=== PATIENT | female | born 1995 | race Caucasian/White ===

== ENCOUNTER 2021-04-07 10:22 | Emergency (ER) | payer MEDICAID ==
[2021-04-07] MEDS ORDERED: Sodium Chloride 0.9% 10 ML Syringe FLUSH PRN (11:15)
--- NOTE | 2021-04-07 11:51 | CR ---
Chest: Portable view of the chest was obtained. Comparison: No prior chest imaging is available. Slightly lobulated hemidiaphragm is seen most likely chronic. Lungs otherwise are clear. Heart size and mediastinum are normal. Slight scoliosis is noted within the spine. Impression: 1. Slightly lobulated hemidiaphragm which is most likely chronic. 2. Nothing acute is otherwise seen on portable chest x-ray. Diagnostic code #2
--- NOTE | 2021-04-07 12:27 | EDM.PDOC ---
ED HPI GENERAL MEDICAL PROBLEM - General Chief Complaint: Respiratory Problem Stated Complaint: COVID + CHEST PAIN\SOB Time Seen by Provider: 04/07/21 11:03 Source of Information: Reports: Patient History Limitations: Reports: No Limitations - History of Present Illness INITIAL COMMENTS - FREE TEXT/NARRATIVE: 26-year-old female presents the emergency department today with complaints of increased shortness of breath and chest pain that started yesterday. Patient states that she was diagnosed with Covid 6 days ago however did have symptoms that started 3 days prior to the diagnosis of Covid. She states that she initially had headache and body aches which progressed to nausea, vomiting, diarrhea, cough and shortness of breath. She states that she became more short of breath yesterday and developed midsternal chest pain associated with coughing. She also complains of nausea and vomiting and states that she has vomited a couple of times daily after eating. She has been able to take sips of water without vomiting. She does admit to having a history of asthma however states she does not take any maintenance medications for the asthma and has not had an asthma attack in over 6 years. She does admit to smoking half pack cigarettes per day for the past 8 years. And she also does have a history of ulcerative colitis. Middle Chest Pain Score (Numeric/FACES): 7 - Related Data Allergies Allergy/AdvReac Type Severity Reaction Status Date / Time promethazine [From Phenergan] Allergy Severe Anaphylactic Verified 05/14/18 18:23 Shock adhesive tape Allergy Rash Verified 04/07/21 11:34 Home Meds: Home Meds Albuterol Sulfate [Albuterol Sulfate HFA] 2 puff INH Q2H PRN #1 ea 04/07/21 [Rx] Ondansetron [Zofran ODT] 4 mg PO Q6H PRN #12 tab.dis 04/07/21 [Rx] Ondansetron [Zofran Odt] 8 mg PO TID PRN 04/07/21 [History] Past Medical History HEENT History: Reports: Impaired Vision Other HEENT History: wears eyeglasses. Cardiovascular History: Reports: None Respiratory History: Reports: Asthma Gastrointestinal History: Reports: Chronic Diarrhea, GERD, Inflammatory Bowel Disease Genitourinary History: Reports: UTI, Recurrent [employer] History: Reports: , Spontaneous Neurological History: Reports: Migraines Psychiatric History: Reports: Anxiety, Depression - Infectious Disease History Infectious Disease History: Reports: Novel Coronavirus - Past Surgical History HEENT Surgical History: Reports: Other (See Below) Other HEENT Surgeries/Procedures: wisdom teeth removed. GI Surgical History: Reports: Other (See Below) Other GI Surgeries/Procedures: total colectomy due ulcerative colitis Female Surgical History: Reports: Other (See Below) Other Female Surgeries/Procedures: fallopian tubes. Musculoskeletal Surgical History: Reports: Other (See Below) Other Musculoskeletal Surgeries/Procedures:: bunion surgery L) toe. Social & Family History - Family History Family Medical History: No Pertinent Family History - Tobacco Use Tobacco Use Status *Q: Current Every Day Tobacco User Years of Tobacco use: 8 Packs/Tins Daily: 0.5 Second Hand Smoke Exposure: Yes - Caffeine Use Caffeine Use: Reports: Coffee, Energy Drinks, Soda, Tea - Recreational Drug Use Recreational Drug Type: Reports: Marijuana/Hashish Recreational Drug Use Frequency: Weekly ED ROS GENERAL - Review of Systems Review Of Systems: Comprehensive ROS is negative, except as noted in HPI. ED EXAM, GENERAL - Physical Exam Exam: See Below Exam Limited By: No Limitations General Appearance: Alert, WD/WN, No Apparent Distress Ears: Normal External Exam, Hearing Grossly Normal Nose: Normal Inspection Throat/Mouth: Normal Inspection, Normal Lips, Normal Voice, No Airway Compromise Head: Atraumatic Neck: Normal Inspection, Supple Respiratory/Chest: No Respiratory Distress, Lungs Clear, No Accessory Muscle Use, Chest Non-Tender, Decreased Breath Sounds Cardiovascular: Normal Peripheral Pulses, Regular Rate, Rhythm, No Edema, No Murmur Peripheral Pulses: 2+: Radial (L), Radial (R) GI/Abdominal: Normal Bowel Sounds, Soft, Non-Tender, No Distention (Female) Exam: Deferred Rectal (Female) Exam: Deferred Back Exam: Normal Inspection Extremities: Normal Inspection Neurological: Alert, Oriented, Normal Cognition Psychiatric: Normal Affect, Normal Mood Skin Exam: Warm, Dry, Intact, Normal Color, No Rash Lymphatic: No Adenopathy #1 Interpretation EKG Date: 04/07/21 Time: 11:54 Rhythm: NSR Rate (Beats/Min): 77 [place]: Normal P-Wave: Present QRS: Normal ST-T: Normal QT: Normal Comparison: NA - No Prior EKG EKG Interpretation Comments: Per Dr. Ryan interpretation: Normal sinus rhythm rate of 77; Q waves V2 and aVL; no ST changes Course - Vital Signs Text/Narrative:: As stated above, patient presents with worsening shortness of breath and chest pain associated with Covid. Patient at the time of my assessment does not appear to be in any distress. She is not dyspneic at rest. Physical exam is essentially unremarkable and she is hemodynamically stable. O2 saturations are 97% on room air and she is also afebrile. Again she states that she does have chest pain noted however it is with coughing. Lung sounds are slightly diminished. I have ordered labs to include a CBC, CMP, magnesium level, C- reactive protein, D-dimer as well as an EKG and portable chest x-ray. Last Recorded V/S: Last Vital Signs Temp 97.1 F 04/07/21 10:35 Pulse 70 04/07/21 10:35 Resp 16 04/07/21 10:35 BP 124/86 04/07/21 10:35 Pulse Ox 97 04/07/21 10:35 - Orders/Labs/Meds Orders: Active Orders 24 hr Category Date Time Status EKG Documentation Completion [RC] STAT Care 04/07/21 11:16 Active Sodium Chloride 0.9% [Saline Flush] Med 04/07/21 11:15 Active 10 ml FLUSH ASDIRECTED PRN Saline Lock Insert [OM.PC] Stat Oth 04/07/21 11:15 Ordered Medication Orders Sodium Chloride (Sodium Chloride 0.9% 10 Ml Syringe) 10 ml FLUSH ASDIRECTED PRN PRN Reason: Keep Vein Open Last Admin: 04/07/21 11:33 Dose: 10 ml Documented by: ROSALIA Labs: Laboratory Tests 04/07/21 04/07/21 04/07/21 Range/Units 11:30 11:30 11:30 WBC 6.13 (3.98-10.04) K/mm3 RBC 5.19 (3.98-5.22) M/mm3 Hgb 16.2 H D (11.2-15.7) gm/dl Hct 47.6 H (34.1-44.9) % MCV 91.7 (79.4-94.8) fl MCH 31.2 (25.6-32.2) pg MCHC 34.0 (32.2-35.5) g/dl RDW Std Deviation 43.6 (36.4-46.3) fL Plt Count 184 D (182-369) K/mm3 MPV 11.1 (9.4-12.3) fl Neut % (Auto) 53.6 (34.0-71.1) % Lymph % (Auto) 31.2 (19.3-51.7) % [place] % (Auto) 6.2 (4.7-12.5) % Eos % (Auto) 8.8 H (0.7-5.8) Baso % (Auto) 0.2 (0.1-1.2) % Neut # (Auto) 3.29 (1.56-6.13) K/mm3 Lymph # (Auto) 1.91 (1.18-3.74) K/mm3 [place] # (Auto) 0.38 H (0.24-0.36) K/mm3 Eos # (Auto) 0.54 H (0.04-0.36) K/mm3 Baso # (Auto) 0.01 (0.01-0.08) K/mm3 D-Dimer, Quantitative 0.24 (0.19-0.50) mg/L Sodium 138 (136-145) mEq/L Potassium 4.3 (3.5-5.1) mEq/L Chloride 106 (98-107) mEq/L Carbon Dioxide 23 (21-32) mEq/L Anion Gap 13.3 (5-15) BUN 12 (7-18) mg/dL Creatinine 0.7 (0.55-1.02) mg/dL Est Cr Clr Drug Dosing 104.24 mL/min Estimated GFR (MDRD) > 60 (>60) mL/min BUN/Creatinine Ratio 17.1 (14-18) Glucose 91 (70-99) mg/dL Calcium 8.7 (8.5-10.1) mg/dL Magnesium 2.1 (1.8-2.4) mg/dL Total Bilirubin 0.4 (0.2-1.0) mg/dL AST 21 (15-37) U/L ALT 34 (14-59) U/L Alkaline Phosphatase 51 (46-116) U/L Troponin I < 0.017 (0.00-0.056) ng/mL C-Reactive Protein <0.2 (<1.0) mg/dL Total Protein 8.0 (6.4-8.2) g/dl Albumin 4.0 (3.4-5.0) g/dl Globulin 4.0 gm/dL Albumin/Globulin Ratio 1.0 (1-2) Meds: Medications Generic Name Dose Route Start Last Admin Trade Name Freq PRN Reason Stop Dose Admin Sodium Chloride 10 ml 04/07/21 11:15 04/07/21 11:33 Sodium Chloride 0.9% 10 Ml Syringe FLUSH 10 ml ASDIRECTED PRN Administration Keep Vein Open - Re-Assessments/Exams Free Text/Narrative Re-Assessment/Exam: 04/07/21 12:25 Radiologist impression portable view of the chest: 1. Slightly lobulated hemidiaphragm which is most likely chronic. 2. Nothing acute is otherwise seen on portable chest x-ray. 04/07/21 12:27 Hematology reveals a WBC of 6.13, hemoglobin 16.2, hematocrit 47.6, platelet count 184 Coagulation reveals a D-dimer of 0.24 Chemistry is essentially unremarkable, troponin less than 0.017, C-reactive protein less than 0.2 04/07/21 12:36 Patient will be discharged home with a prescription for an albuterol inhaler. I have verbally instructed her on frequency and use of this. I will also send her with a prescription for Zofran ODT for the nausea and vomiting. Departure - Departure Time of Disposition: 12:37 Disposition: Home, Self-Care 01 Condition: Good Clinical Impression: COVID-19 - Discharge Information Prescriptions: Albuterol Sulfate [Albuterol Sulfate HFA] 2 puff INH Q2H PRN #1 ea PRN Reason: Shortness Of Breath Ondansetron [Zofran ODT] 4 mg PO Q6H PRN #12 tab.dis PRN Reason: Nausea/Vomiting Referrals: Tiarra Drew NP [Primary Care Provider] - Forms: ED Department Discharge Additional Instructions: You were seen in the emergency department today with increased shortness of breath and chest discomfort associated with Covid. EKG, chest x-ray and lab studies were completed and these were all essentially unremarkable. Your chest x-ray did not show any signs of pneumonia or Covid. Chest pain is likely due to coughing and musculoskeletal discomfort. Treatment for this will be albuterol inhaler. You can take 2 puffs every 2 hours as needed for shortness of breath. Take Tylenol 650 mg every 4 hours as needed for chest discomfort or ibuprofen 600 mg every 6-8 hours as needed for chest discomfort. Take Zofran ODT one tab placed under the tongue every 6 hours as needed for nausea and vomiting. Please allow 30 minutes after taking the medication to allow to take full effect before eating or drinking. Be sure to be eating small frequent meals as well as dr inking plenty of fluids. Should your condition worsen or change, do not hesitate returning to the emergency department. Sepsis Event Note (ED) - Evaluation Sepsis Screening Result: No Definite Risk - Focused Exam Vital Signs: Vital Signs Temp Pulse Resp BP Pulse Ox 04/07/21 10:35 97.1 F 70 16 124/86 97 - My Orders Last 24 Hours: My Active Orders 04/07/21 11:15 Sodium Chloride 0.9% [Saline Flush] 10 ml FLUSH ASDIRECTED PRN Saline Lock Insert [OM.PC] Stat 04/07/21 11:16 EKG Documentation Completion [RC] STAT - Assessment/Plan Last 24 Hours: My Active Orders 04/07/21 11:15 Sodium Chloride 0.9% [Saline Flush] 10 ml FLUSH ASDIRECTED PRN Saline Lock Insert [OM.PC] Stat 04/07/21 11:16 EKG Documentation Completion [RC] STAT
== END 2021-04-07 13:05 | disposition home or self-care (01) ==
LOC: SUPCPDRO 10:22 → JD.ED 10:22
DX: U07.1 COVID-19 (principal); J45.909 Unspecified asthma, uncomplicated; F17.210 Nicotine dependence, cigarettes, uncomplicated; Z91.048 Other nonmedicinal substance allergy status; Z88.8 Allergy status to other drugs, medicaments and biological substances; Z79.899 Other long term (current) drug therapy
CPT/HCPCS: 36415; 71045; 71045-26; 80053; 83735; 84484; 85025; 85379; 86140; 99285-25

== ENCOUNTER 2022-05-21 15:37 | Emergency (ER) | payer MEDICAID ==
[2022-05-21] MEDS ORDERED: Sodium Chloride 0.9% 10 ML Syringe FLUSH PRN (17:17)
[2022-05-21] MEDS ORDERED: Iopamidol 612 MG/ML 100 ML Bottle IVPUSH ONE (17:23)
[2022-05-21 18:18] LABS: ESTIMATED GFR 121 mL/min (>60)
== END 2022-05-21 20:52 | disposition home or self-care (01) ==
LOC: JD.ED 15:37
DX: R10.32 Left lower quadrant pain (principal); F17.210 Nicotine dependence, cigarettes, uncomplicated; Z88.8 Allergy status to other drugs, medicaments and biological substances; Z91.048 Other nonmedicinal substance allergy status; Z79.899 Other long term (current) drug therapy
CPT/HCPCS: 36415; 74177; 80053; 81001; 83690; 84703; 85025; 86140; 99284; J3490; Q9967